=== PATIENT | female | born 1990 | race Caucasian/White ===

== ENCOUNTER → 2019-02-13 | Outpatient (CLI) | payer OTHER ==
[~2019-02-13] MED LIST: BCP; FLINTSTONES COM1 CT1 PO; IBU800 M1 PO; LO LOESTRIN FE1 TAB PO; MOTRIN 200200 MG/TAB PO; MOTRIN 600600 MG/TAB PO; PERCOCET 325 MG1 TA2 PO; SENOKOT S 50 MG1 TAB PO; TYLENOL 325MG325 MG PO; ZOVIRAX400 MG
== END ==
LOC: MC.RAD 09:52
DX: N63.20 Unspecified lump in the left breast, unspecified quadrant (principal)

== ENCOUNTER → 2019-08-20 | Outpatient (CLI) | payer OTHER | LOC: MC.RAD 07:48 | DX: N63.22 Unspecified lump in the left breast, upper inner quadrant (principal) ==

== ENCOUNTER → 2020-09-09 | Outpatient (CLI) | payer OTHER | LOC: MC.RAD 09-02 08:30 | DX: N63.20 Unspecified lump in the left breast, unspecified quadrant (principal) ==

== ENCOUNTER → 2021-08-08 | Outpatient (CLI) | payer OTHER | LOC: MC.RAD 09:00 | DX: N60.11 Diffuse cystic mastopathy of right breast (principal); N60.12 Diffuse cystic mastopathy of left breast ==

== ENCOUNTER → 2021-08-23 | Outpatient (CLI) | payer OTHER | LOC: MC.RAD 07:45 | DX: N63.10 Unspecified lump in the right breast, unspecified quadrant (principal) ==